=== PATIENT | female | born 1950 | race Caucasian/White ===

== ENCOUNTER → 2016-12-24 | Outpatient (CLI) | payer OTHER, MEDICARE ==
[~2016-12-24] VITALS: Ht 160 cm; Wt 57.1 kg
[~2016-12-24] MED LIST: ASPIR 8181 M1 PO; EFFEXOR75 MG PO; LEVO-T88 MCG PO; VALTREX50 MG/ML PO; VITAMIN D5000 UNI1 PO; XYZAL5 MG PO
== END | disposition home or self-care (01) ==
LOC: AMB 12-10 08:00 → OPR 12-10 10:30 → AMB 09:59
PROC: 0DBP8ZX Excision of Rectum, Via Natural or Artificial Opening Endoscopic, Diagnostic (ICD-10-PCS; principal; 2016-12-24)
DX: D12.8 Benign neoplasm of rectum (principal); K21.9 Gastro-esophageal reflux disease without esophagitis; E03.9 Hypothyroidism, unspecified; Z79.82 Long term (current) use of aspirin; Z86.010 Personal history of colon polyps
CPT/HCPCS: 88305; J0330; J2250; J2405; J3010

== ENCOUNTER → 2017-06-03 | Outpatient (CLI) | payer OTHER, MEDICARE ==
[~2017-06-03] VITALS: Ht 160 cm; Wt 56.7 kg
[~2017-06-03] MED LIST changes: +VITAMIN D-32000 UNI2 PO; -VITAMIN D5000 UNI1 PO
== END | disposition home or self-care (01) ==
LOC: AMB 05-13 10:15
PROC: 0DBP8ZX Excision of Rectum, Via Natural or Artificial Opening Endoscopic, Diagnostic (ICD-10-PCS; principal; 2017-06-03)
DX: Z12.11 Encounter for screening for malignant neoplasm of colon (principal); Z86.010 Personal history of colon polyps
CPT/HCPCS: 88305